=== PATIENT | female | born 1950 | race Caucasian/White ===

== ENCOUNTER 2016-05-12 17:00 | Observation (INO) | payer MEDICARE, OTHER ==
[~2016-05-12] VITALS: Ht 172.7 cm; Wt 114.1 kg
[2016-05-12 19:32] LABS: HEMOGLOBIN 14.9 gm/dl (12.3-15.3); RED BLOOD COUNT 4.41 M/UL (4.00-5.10); WHITE BLOOD COUNT 8.3 K/UL (4.5-11.0)
[2016-05-12 19:51] LABS: BUN/CREATININE RATIO 37 (0-10)
[2016-05-13] MEDS ORDERED: LOPRESSOR 25 MG25 MG PO (03:32)
[2016-05-13] MEDS ORDERED: LOSARTAN POTASS25 MG PO (03:33)
[2016-05-13] MEDS ORDERED: ASPIR 8181 MG PO (03:33)
[2016-05-13] MEDS ORDERED: ELIQUIS 5 MG TAB5 MG PO (03:33)
[2016-05-13] MEDS ORDERED: POTASSIUM CHLO10 ME2 PO (03:34)
[2016-05-13] MEDS ORDERED: LANTUS100 UNIT/1 SQ (03:34)
[2016-05-13] MEDS ORDERED: NOVOLOG 10100 UNITS1 SQ (03:35)
[2016-05-13] MEDS ORDERED: IMDUR ER TAB 3030 MG PO (04:07)
[2016-05-13] MEDS ORDERED: COLACE 100MG C100 MG PO (04:08)
[2016-05-13] MEDS ORDERED: JANUVIA 100 MG100 MG PO (04:08)
[2016-05-13] MEDS ORDERED: CLARITIN10 M2 PO (04:09)
[2016-05-13] MEDS ORDERED: LIPITOR TAB 2020 MG PO (04:09)
[2016-05-13] MEDS ORDERED: CALCIUM600 MG PO (04:09)
[2016-05-13] MEDS ORDERED: PAROXETINE HCL30 MG PO (04:10)
[2016-05-13] MEDS ORDERED: DIAMOX 250 MG250 MG PO (04:11)
[2016-05-13] MEDS ORDERED: VISTARIL 25 MG25 MG PO (04:11)
[2016-05-13] MEDS ORDERED: OMEPRAZOLE10 MG PO (04:12)
[2016-05-13] MEDS ORDERED: DILTIAZEM ER240 M1 PO (04:12)
[2016-05-13] MEDS ORDERED: INVOKANA300 MG PO (04:13)
[2016-05-13] MEDS ORDERED: DIGOXIN125 MCG PO (04:13)
[2016-05-13] MEDS ORDERED: LASIX40 MG PO (04:14)
[2016-05-13] MEDS ORDERED: VITAMIN D32000 UNI1 PO (04:14)
== END 2016-05-14 16:19 | disposition home or self-care (01) ==
LOC: ER1 17:00 → ZEROF 21:10 → M/S 21:10 → ER1 05-13 02:10 → M/S 05-13 02:38 → ZEROF 05-13 02:38 → M/S 05-13 02:38
PROVIDERS: Physician Assistant; ADMIT Internal Medicine
DX: R07.9 Chest pain, unspecified (principal); M25.512 Pain in left shoulder; I10 Essential (primary) hypertension; E78.5 Hyperlipidemia, unspecified; E11.9 Type 2 diabetes mellitus without complications; I48.2 Chronic atrial fibrillation; G89.4 Chronic pain syndrome; E66.2 Morbid (severe) obesity with alveolar hypoventilation; K21.9 Gastro-esophageal reflux disease without esophagitis; R09.02 Hypoxemia; Z82.49 Family history of ischemic heart disease and other diseases of the circulatory system; Z88.0 Allergy status to penicillin; Z79.01 Long term (current) use of anticoagulants; Z79.82 Long term (current) use of aspirin; Z79.899 Other long term (current) drug therapy; Z90.49 Acquired absence of other specified parts of digestive tract
CPT/HCPCS: ECHO; 36415; 71010; 73030; 78452; 80053; 80061; 82550; 82553; 82962; 83036; 83874; 84484; 85025; 93005; 93017; 93306; 96372; 99285; A9502; G0378; J1815; J1817; J2785; Q0177

== ENCOUNTER → 2016-06-20 | Outpatient (CLI) | payer MEDICARE, OTHER ==
[~2016-06-20] MED LIST: ASPIR 8181 MG PO; CALCIUM600 MG PO; CLARITIN10 M2 PO; COLACE 100MG C100 MG PO; DIAMOX 250 MG250 MG PO; DIGOXIN125 MCG PO; DILTIAZEM ER240 M1 PO; ELIQUIS 5 MG TAB5 MG PO; IMDUR ER TAB 3030 MG PO; INVOKANA300 MG PO; JANUVIA 100 MG100 MG PO; LANTUS100 UNIT/1 SQ; LASIX40 MG PO; LIPITOR TAB 2020 MG PO; LOPRESSOR 25 MG25 MG PO; LOSARTAN POTASS25 MG PO; NOVOLOG 10100 UNITS1 SQ; OMEPRAZOLE10 MG PO; PAROXETINE HCL30 MG PO; POTASSIUM CHLO10 ME2 PO; VISTARIL 25 MG25 MG PO; VITAMIN D32000 UNI1 PO
[2016-06-20 14:05] LABS: BUN/CREATININE RATIO 39 (0-10)
[2016-06-20 15:10] LABS: HEMOGLOBIN 14.7 gm/dl (12.3-15.3); RED BLOOD COUNT 4.42 M/UL (4.00-5.10)
== END ==
LOC: LAB 12:58
PROVIDERS: Family Medicine
DX: E11.40 Type 2 diabetes mellitus with diabetic neuropathy, unspecified (principal); E53.8 Deficiency of other specified B group vitamins; E55.9 Vitamin D deficiency, unspecified
CPT/HCPCS: 36415; 80053; 82607; 83036; 84443; 85025

== ENCOUNTER 2016-07-13 17:33 | Emergency (ER) | payer MEDICARE ==
[2016-07-13 21:06] LABS: HEMOGLOBIN 13.5 gm/dl (12.3-15.3); RED BLOOD COUNT 4.07 M/UL (4.00-5.10); WHITE BLOOD COUNT 8.1 K/UL (4.5-11.0)
[2016-07-13 21:35] LABS: BUN/CREATININE RATIO 26 (0-10)
== END 2016-07-14 03:03 | disposition home or self-care (01) ==
LOC: ER1 20:01
PROVIDERS: Family Medicine
DX: R06.02 Shortness of breath (principal); R00.2 Palpitations; R07.89 Other chest pain; R11.0 Nausea; R42 Dizziness and giddiness; I11.0 Hypertensive heart disease with heart failure; I50.9 Heart failure, unspecified; I48.91 Unspecified atrial fibrillation; J44.9 Chronic obstructive pulmonary disease, unspecified; Z88.0 Allergy status to penicillin; Z79.01 Long term (current) use of anticoagulants; Z79.4 Long term (current) use of insulin; Z79.82 Long term (current) use of aspirin; Z79.899 Other long term (current) drug therapy
CPT/HCPCS: 36415; 71010; 80053; 82550; 82553; 83874; 84484; 85025; 93005; 99285; Q0177

== ENCOUNTER 2016-08-15 19:10 | Emergency (ER) | payer MEDICARE, OTHER ==
[2016-08-15 20:32] LABS: HEMOGLOBIN 13.9 gm/dl (12.3-15.3); RED BLOOD COUNT 4.13 M/UL (4.00-5.10); WHITE BLOOD COUNT 7.8 K/UL (4.5-11.0)
== END 2016-08-16 01:16 | disposition home or self-care (01) ==
LOC: ER1 19:10
PROVIDERS: Family Medicine
DX: K59.00 Constipation, unspecified (principal); G89.29 Other chronic pain; M54.5 Low back pain; Z88.0 Allergy status to penicillin; Z79.1 Long term (current) use of non-steroidal anti-inflammatories (NSAID); Z79.899 Other long term (current) drug therapy
CPT/HCPCS: 71010; 80053; 81001; 82272; 82550; 82553; 83605; 83690; 83874; 84484; 85025; 93005; 94664; 96360; 99285